=== PATIENT | female | born 1960 | race Caucasian/White ===

== ENCOUNTER → 2017-02-04 | Outpatient (CLI) | payer OTHER | LOC: FIMAGING 10:16 | PROVIDERS: ATTEND Internal Medicine Hematology & Oncology | DX: Z12.31 Encounter for screening mammogram for malignant neoplasm of breast (principal) | CPT/HCPCS: G0202 ==

== ENCOUNTER → 2017-10-16 | Outpatient (CLI) | payer OTHER | LOC: FIMAGING 18:45 | PROVIDERS: ATTEND Internal Medicine | DX: M50.30 Other cervical disc degeneration, unspecified cervical region (principal); M89.38 Hypertrophy of bone, other site ==

== ENCOUNTER → 2018-02-06 | Outpatient (CLI) | payer OTHER | LOC: FIMAGING 08:38 | PROVIDERS: ATTEND Surgery | DX: Z12.31 Encounter for screening mammogram for malignant neoplasm of breast (principal); Z86.000 Personal history of in-situ neoplasm of breast ==

== ENCOUNTER 2018-04-29 17:37 | Observation (INO) | payer OTHER ==
[2018-04-29] MEDS ORDERED: NITROGLYCERIN 0.4 MG BTL SL PRN (18:02)
[2018-04-29] MEDS ORDERED: NS 1,000 ML IV ONE (18:02)
[2018-04-29] MEDS ORDERED: ASPIRIN 81 MG CHEWABLE TAB PO ONE (18:02)
--- NOTE | 2018-04-29 18:04 | EDPHY ---
H & P Stated Complaint: CP SINCE SATURDAY POST TAKING HER MIGRAINE MEDS Time Seen by Provider: 04/29/18 18:02 HPI/ROS: HPI CHIEF COMPLAINT: Chest pain HISTORY OF PRESENT ILLNESS: Very pleasant 57-year-old female, history of breast cancer status post lumpectomy, edgardo dissection, no history of cardiovascular disease, presents emergency room with pressure in her chest. Describes it as substernal and left side of her chest. Has been rather constant today noticed it yesterday. Denies any significant shortness of breath or pleuritic pain. Denies hemoptysis. No history of cardiovascular or PE. Her does have extensive family history of cardiovascular disease. Currently in emergency room she still has substernal chest pressure something sitting on her chest. Past Medical History: Breast cancer Past Surgical History: Lumpectomy x2, edgardo dissection Social History: Denies drugs alcohol tobacco. Family History: Extensive family history of cardiovascular disease including coronary artery disease, atherosclerosis, aneurysmal disease ROS REVIEW OF SYSTEMS: 10 Systems were reviewed and negative with the exception of the elements mentioned in the history of present illness. Exam Constitutional triage nursing summary reviewed, vital signs reviewed, awake/ alert. Eyes normal conjunctivae and sclera, EOMI, PERRLA. HENT normal inspection, atraumatic, moist mucus membranes, no epistaxis, neck supple/ no meningismus, no raccoon eyes. Respiratory clear to auscultation bilaterally, normal breath sounds, no respiratory distress, no wheezing. Cardiovascular rate normal, regular rhythm, no murmur, no edema, distal pulses normal. Gastrointestinal soft, non-tender, no rebound, no guarding, normal bowel sounds, no distension, no pulsatile mass. Genitourinary no CVA tenderness. Musculoskeletal no midline vertebral tenderness, full range of motion, no calf swelling, no tenderness of extremities, no meningismus, good pulses, neurovascularly intact. Skin pink, warm, & dry, no rash, skin atraumatic. Neurologic awake, alert and oriented x 3, AAOx3, moves all 4 extremities equally, motor intact, sensory intact, CN II-XII intact, normal cerebellar, normal vision, normal speech. Psychiatric normal mood/affect. Heme/Lymph/Immune no lymphadenopathy. Differential diagnosis includes but is not limited to: ACS, atypical chest pain , pneumothorax, pneumonia, pulmonary embolism, aortic dissection, congestive heart failure, tumor, musculoskeletal pain, esophageal pain, GERD, peptic ulcer disease, pancreatitis Medical Decision Making: Plan for this patient IV establishment full laboratory monitor obtain EKG to rule out acute coronary syndrome, chest x-ray, full-dose aspirin, nitroglycerin, chest x-ray, D-dimer for PE. And re-evaluate. Re-evaluation: EKG interpretation by me on record in [id number] system. Impression time of EKG 1802, sinus rhythm rate of 57 no signs of acute ischemia no ST elevation no ST depression no significant T-wave abnormalities. No prolonged intervals. Unremarkable nonischemic EKG. Patient's point of care troponin 0.01. Patient has a negative D-dimer. The patient's EKG is unremarkable nonischemic. The patient's chest x-ray negative for acute cardiopulmonary disease. I had a long discussion with the patient about risk versus benefit of being admitted for chest pain. Given her typical substernal chest pressure, cardiovascular risk factors it is recommend she gets admitted for serial markers and rule out. HEART Score for Major Cardiac Events from [employer] on 04/30/2018 All calculations should be rechecked by clinician prior to use RESULT SUMMARY: 3 points Low Score (0-3 points) Risk of MACE of 0.9-1.7%. INPUTS: History > 1 = Moderately suspicious EKG > 0 = Normal Age > 1 = 45-64 Risk factors > 1 = 1-2 risk factors Initial troponin > 0 = normal limit However given Fam history. Recommed inpatient stress/serial enzymes. rule out. Source: Patient - Personal History Current Tetanus Diphtheria and Acellular Pertussis (TDAP): No - Medical/Surgical History Hx Asthma: No Hx Chronic Respiratory Disease: No Hx Diabetes: No Hx Cardiac Disease: No Hx Renal Disease: No Hx Cirrhosis: No Hx Alcoholism: No Hx HIV/AIDS: No Hx Splenectomy or Spleen Trauma: No Other PMH: MIGRAINES - Social History Smoking Status: Never smoked Constitutional: Initial Vital Signs Temperature (C) 36.4 C 04/29/18 17:45 Heart Rate 58 L 04/29/18 17:45 Respiratory Rate 18 04/29/18 17:45 Blood Pressure 130/68 H 04/29/18 17:45 O2 Sat (%) 97 04/29/18 17:45 O2 Delivery Mode Room Air Allergies/Adverse Reactions: fluconazole [From Diflucan] Allergy (Intermediate, Verified 04/29/18 17:43) morphine Allergy (Intermediate, Verified 04/29/18 17:43) Sulfa (Sulfonamide Antibiotics) Allergy (Intermediate, Verified 04/29/18 17:43) adhesive tape Allergy (Verified 04/30/18 00:16) Itching banana Allergy (Verified 04/29/18 17:43) Beans Allergy (Verified 04/29/18 17:43) Beef Containing Products [beef] Allergy (Verified 04/29/18 17:43) egg Allergy (Verified 04/29/18 17:43) green pepper Allergy (Verified 04/29/18 17:43) hydrocodone [Hydrocodone] Allergy (Verified 04/29/18 17:43) depression iodine [Iodine] Allergy (Verified 04/29/18 17:43) lower body numbness Milk Containing Products [dairy] Allergy (Verified 04/29/18 17:43) mushroom Allergy (Verified 04/29/18 17:43) Home Medications: Medication Instructions Recorded Acetaminophen [Tylenol ES 500 mg 1,000 mg PO Q8 PRN 04/29/18 (*)] Naratriptan HCl [Amerge] 2.5 mg PO PRN PRN 04/29/18 Medical Decision Making - Data Points Laboratory Results: Laboratory Results 04/29/18 18:17 04/29/18 18:17 Medications Given: Discontinued Medications Al Hydroxide/Mg Hydroxide (Maalox Susp) 30 ml PO ONCE ONE Stop: 04/29/18 21:08 Last Admin: 04/29/18 21:44 Dose: 30 ml Aspirin (Aspirin) 324 mg PO EDNOW ONE Stop: 04/29/18 18:03 Last Admin: 04/29/18 18:31 Dose: 324 mg Hyoscyamine Sulfate (Levsin, Hyomax-Sl) 0.25 mg PO ONCE ONE Stop: 04/29/18 21:08 Last Admin: 04/29/18 21:44 Dose: 0.25 mg Sodium Chloride (Ns) 1,000 mls @ 0 mls/hr IV EDNOW ONE; Wide Open PRN Reason: Protocol Stop: 04/29/18 18:03 Last Admin: 04/29/18 18:32 Dose: 1,000 mls Lidocaine (Lidocaine 2% Viscous) 15 ml PO ONCE ONE Stop: 04/29/18 21:08 Last Admin: 04/29/18 21:44 Dose: 15 ml Point of Care Test Results: Chemistry 04/29/18 19:08 POC Troponin I 0.01 ng/mL ng/mL (0.00-0.08) Departure - Departure Disposition: [facility] Inpatient Acute Clinical Impression: Chest pain Qualifiers: Chest pain type: unspecified Qualified Code(s): R07.9 - Chest pain, unspecified Condition: Fair
[2018-04-29 18:47] LABS: PLATELET COUNT 222 10^3/uL (150-400)
[2018-04-29 18:51] LABS: INR 1.08 (0.83-1.16); PROTIME(PATIENT) 14.2 SEC (12.0-15.0)
[2018-04-29 18:59] LABS: CREATINE KINASE 81 IU/L (0-156)
[2018-04-29] MEDS ORDERED: ACETAMINOPHEN 325 MG TAB PO PRN (20:52)
[2018-04-29] MEDS ORDERED: ONDANSETRON 4 MG/2 ML VIAL IVP PRN (20:52)
[2018-04-29] MEDS ORDERED: ONDANSETRON DISINTEGRATING 4 MG TAB PO PRN (20:52)
--- NOTE | 2018-04-29 21:06 | PDGENHP ---
History and Physical - Chief Complaint chest pain - History of Present Illness 57 yo female with h/o migraine presents to ED with chest pain. She was in [place] with her family this weekend and developed chest pain, which she describes as an uncomfortable pressure. The onset was not with exertion. She thought it was indigestion. The pain came and went. She developed a migraine on Saturday and took her triptan. Last night, the pain recurred, again at rest. No radiation. No nausea, SOB or diaphoresis. She notes a family h/o CAD in her father. Her sister also has CAD, onset in her 50's. She has no h/o tobacco , hypertension, hyperlipidemia, or diabetes. In the ED, she received aspirin. Her initial troponin is negative and her EKG is non-ischemic. She is admitted to the hospital for further evaluation. History Information - Allergies/Home Medication List Allergies/Adverse Reactions: fluconazole [From Diflucan] Allergy (Intermediate, Verified 04/29/18 17:43) morphine Allergy (Intermediate, Verified 04/29/18 17:43) Sulfa (Sulfonamide Antibiotics) Allergy (Intermediate, Verified 04/29/18 17:43) banana Allergy (Verified 04/29/18 17:43) Beans Allergy (Verified 04/29/18 17:43) Beef Containing Products [beef] Allergy (Verified 04/29/18 17:43) egg Allergy (Verified 04/29/18 17:43) green pepper Allergy (Verified 04/29/18 17:43) hydrocodone [Hydrocodone] Allergy (Verified 04/29/18 17:43) depression iodine [Iodine] Allergy (Verified 04/29/18 17:43) lower body numbness Milk Containing Products [dairy] Allergy (Verified 04/29/18 17:43) mushroom Allergy (Verified 04/29/18 17:43) Home Medications: Acetaminophen [Tylenol ES 500 mg (*)] 1,000 mg PO Q8 PRN 04/29/18 [Last Taken ] Naratriptan HCl [Amerge] 2.5 mg PO PRN PRN 04/29/18 [Last Taken 04/27/18] I have personally reviewed and updated: family history, medical history, social history, surgical history - Past Medical History Additional medical history: migraine headache - Surgical History Reports: no pertinent surgical hx - Family History Positive for: CAD - Social History Smoking Status: Never smoked Alcohol Use: None Drug Use: None Additional social history: , lives independently. at bedside. Review of Systems Review of Systems: ROS: 10pt was reviewed & negative except for what was stated in HPI & below Physical Exam Physical Exam: Temp Pulse Resp BP Pulse Ox 36.4 C 76 16 139/92 H 96 04/29/18 17:45 04/29/18 19:47 04/29/18 19:47 04/29/18 19:47 04/29/18 19:47 Constitutional: no apparent distress Eyes: PERRL Ears, Nose, Mouth, Throat: moist mucous membranes Cardiovascular: regular rate and rhythym Respiratory: no respiratory distress, clear to auscultation Gastrointestinal: normoactive bowel sounds, soft, non-tender abdomen Skin: warm Musculoskeletal: full muscle strength Neurologic: AAOx3 Psychiatric: interacting appropriately Lab Data & Imaging Review 04/29/18 18:17 04/29/18 18:17 WBC 4.65 10^3/uL (3.80-9.50) 04/29/18 18:17 RBC 4.45 10^6/uL (4.18-5.33) 04/29/18 18:17 Hgb 14.2 g/dL (12.6-16.3) 04/29/18 18:17 Hct 43.0 % (38.0-47.0) 04/29/18 18:17 MCV 96.6 fL (81.5-99.8) 04/29/18 18:17 MCH 31.9 pg (27.9-34.1) 04/29/18 18:17 MCHC 33.0 g/dL (32.4-36.7) 04/29/18 18:17 RDW 12.3 % (11.5-15.2) 04/29/18 18:17 Plt Count 222 10^3/uL (150-400) 04/29/18 18:17 MPV 11.0 fL (8.7-11.7) 04/29/18 18:17 Neut % (Auto) 62.9 % (39.3-74.2) 04/29/18 18:17 Lymph % (Auto) 28.8 % (15.0-45.0) 04/29/18 18:17 Piute % (Auto) 6.0 % (4.5-13.0) 04/29/18 18:17 Eos % (Auto) 1.7 % (0.6-7.6) 04/29/18 18:17 Baso % (Auto) 0.4 % (0.3-1.7) 04/29/18 18:17 Nucleat RBC Rel Count 0.0 % (0.0-0.2) 04/29/18 18:17 Absolute Neuts (auto) 2.92 10^3/uL (1.70-6.50) 04/29/18 18:17 Absolute Lymphs (auto) 1.34 10^3/uL (1.00-3.00) 04/29/18 18:17 Absolute Monos (auto) 0.28 10^3/uL (0.30-0.80) L 04/29/18 18:17 Absolute Eos (auto) 0.08 10^3/uL (0.03-0.40) 04/29/18 18:17 Absolute Basos (auto) 0.02 10^3/uL (0.02-0.10) 04/29/18 18:17 Absolute Nucleated RBC 0.00 10^3/uL (0-0.01) 04/29/18 18:17 Immature Gran % 0.2 % (0.0-1.1) 04/29/18 18:17 Immature Gran # 0.01 10^3/uL (0.00-0.10) 04/29/18 18:17 PT 14.2 SEC (12.0-15.0) 04/29/18 18:17 INR 1.08 (0.83-1.16) 04/29/18 18:17 APTT 27.1 SEC (23.0-38.0) 04/29/18 18:17 D-Dimer < 0.27 ug/mLFEU (0.00-0.50) 04/29/18 18:17 Sodium 138 mEq/L (135-145) 04/29/18 18:17 Potassium 3.8 mEq/L (3.3-5.0) 04/29/18 18:17 Chloride 102 mEq/L (97-110) 04/29/18 18:17 Carbon Dioxide 27 mEq/l (22-31) 04/29/18 18:17 Anion Gap 9 mEq/L (8-16) 04/29/18 18:17 BUN 17 mg/dL (7-23) 04/29/18 18:17 Creatinine 0.6 mg/dL (0.6-1.0) 04/29/18 18:17 Estimated GFR > 60 04/29/18 18:17 Glucose 87 mg/dL (70-100) 04/29/18 18:17 Calcium 9.5 mg/dL (8.5-10.4) 04/29/18 18:17 Magnesium 2.2 mg/dL (1.6-2.3) 04/29/18 18:17 Total Bilirubin 0.7 mg/dL (0.1-1.4) 04/29/18 18:17 Conjugated Bilirubin 0.1 mg/dL (0.0-0.5) 04/29/18 18:17 Unconjugated Bilirubin 0.6 mg/dL (0.0-1.1) 04/29/18 18:17 AST 23 IU/L (14-46) 04/29/18 18:17 ALT 28 IU/L (9-52) 04/29/18 18:17 Alkaline Phosphatase 67 IU/L (38-126) 04/29/18 18:17 Creatine Kinase 81 IU/L (0-156) 04/29/18 18:17 CK-MB (CK-2) Fraction 1.48 ng/mL (0.00-4.55) 04/29/18 18:17 POC Troponin I 0.01 ng/mL (0.00-0.08) 04/29/18 19:08 NT-Pro-B Natriuret Pep 58 pg/mL (0-125) 04/29/18 18:17 Total Protein 6.9 g/dL (6.3-8.2) 04/29/18 18:17 Albumin 4.1 g/dL (3.5-5.0) 04/29/18 18:17 Lipase 146 IU/L (23-300) 04/29/18 18:17 Visualized and Interpreted Chest x-ray results: Yes Chest X-Ray results: no infiltrate Visualized and Interpreted EKG results: Yes EKG Interpretation: Positive for: normal sinsus rhythm Assessment & Plan Assessment: Chest pain (Acute) - HEART score 3. Initial troponin neg. EKG non-ischemic. CP persists at 4/10. She refuses nitro or morphine. Agrees to GI cocktail. -trend trop -repeat EKG now to assess for evolutionary changes -trial GI cocktail, suspect this may be GI in origin -exercise treadmill stress test in am if trops remains neg and no EKG changes Migraine headache - defer triptan for now during cardiac workup Full code Dispo - obs
[2018-04-29] MEDS ORDERED: MAG HYDROX/AL HYDROX/SIMETH 30 ML UDCUP PO ONE (21:07)
[2018-04-29] MEDS ORDERED: LIDOCAINE 2% VISCOUS 15 ML UDCUP PO ONE (21:07)
[2018-04-29] MEDS ORDERED: HYOSCYAMINE SULFATE 0.125 MG TAB PO ONE (21:07)
--- NOTE | 2018-04-29 22:02 | CPEKG ---
Test Reason : OPEN Blood Pressure : / mmHG Vent. Rate : 057 BPM Atrial Rate : 056 BPM P-R Int : 180 ms QRS Dur : 096 ms QT Int : 444 ms P-R-T Axes : 057 065 012 degrees QTc Int : 433 ms Sinus rhythm Confirmed by Deisy Yuan ([id number]) on 04/29/2018 10:01:59 PM Referred By: Confirmed By:Deisy Yuan
[2018-04-30 08:07] VITALS: BP 120/71
--- NOTE | 2018-04-30 11:49 | PDDCSUM ---
Discharge Summary Discharge Summary: Date of Admission: 04/29/2018 Date of Discharge: 04/30/2018 Consults: Cardiology Procedures: Treadmill Stress Test Hospital Course Problem List: Chest pain (Acute) - HEART score 3. Initial troponin neg. EKG non-ischemic. CP persists at 4/10. She refuses nitro or morphine. -Troponins negative overnight x3 -trial GI cocktail, suspect this may be GI in origin -exercise treadmill stress test this AM was abnormal per cardiology, they recommend nuclear stress test which patient would like to be done as outpatient , cardiology will set this up Migraine: Was holding Triptans for stress test, resume as outpatient Time spent on discharge was >35 minutes with >50% of time spent on patient education and counseling.
--- NOTE | 2018-04-30 14:25 | PDCARST ---
CAR Stress Test Results Type of Stress Test: TM stress test Indication: cp Description of Procedure: After informed consent was obtained, pt was exercised according to [place] Protocol. Monitoring was performed with standard stress electric motor tester assembler electrode placement. Vital signs were monitored according to protocol throughout the procedure. STRESS EKG AND HEMODYNAMIC DATA. Exercise time: 6: 35 min. This is equivalent to: 7.6 METS. Resting heart rate: 91 bpm. Resting blood pressure: 110/70 mmHg. Resting O2 saturation: 94 %. Peak heart rate: 152 bpm. This is 93 % of age predicted maximum heart rate response. Peak blood pressure: 140/76 mmHg. Exercise O2: 94 %. Arrhythmias : none. Reason for termination: The test was stopped due to maximal effort. Symptoms: The patient experienced mild chest pressure before exercise that waxed and waned out of her awareness. When asked on TM if she is experiencing any discomfort, she described 2/10 pressure. This quickly resolved in recovery. STRESS TEST ANALYSIS. Baseline ECG: SR with diffuse ST-T w abn. Stress ECG: sinus tach. No exercise induced ischemic ECG changes. Baseline ECG abnormalities improved with exertion. Rhythm: No arrhythmias noted during exercise and recovery. Blood pressure: normal blood pressure response to exercise. Exercise tolerance: The patient has average exercise tolerance adjusted for age and gender. Symptoms: No exercise induced symptoms. Impression: IMPRESSIONS: Stress ECG negative for ischemia. The Hunt Treadmill Score is +2 consistent with intermediate cardiovascular risk. This is an equivocal study due to non-diagnostic ECG at rest and chest pressure at rest that waxed and waned out of her awareness and also again noted on exertion. Conclusion: Outpatient nuclear stress testing recommended.
--- NOTE | 2018-04-30 14:41 | ASDISCHSUM ---
Discharge Information Plan Status:Home with No Needs Medically Cleared to Leave:04/30/2018 Discharge Date:04/30/2018 01:25 PM CM D/C Disposition:Home, Routine, Self-Care ADT D/C Disposition:Home, Routine, Self-Care Projected Discharge Date:04/30/2018 01:25 PM Transportation at D/C: Discharge Delay Reason: Follow-Up Date:04/30/2018 01:25 PM Discharge Slot: Final Diagnosis: Placement Information Patient Contact Information Contact Name:RACQUEL Relationship: Address:[facility] [place] Work Phone: City:[place] Alternate Phone: State/Zip Code:[place] [address] Email: Financial Information Financial Class:[facility] Primary Plan Desc:RICK [facility]NA [facility] Primary Plan Number:[id number] Secondary Plan Desc: Secondary Plan Number: Assessment Information LACE LACE Length of stay for Answers: Less than 1 day current admission Acuity / Level of Answers: No Care: Did the patient have an inpatient admission? Comorbidities - select Answers: Opioid dependence all that apply / Chronic pain # of Emergency department Answers: 1-2 visits in the last 6 months Score: 5 Date Signed: 04/30/2018 02:40 PM Electronically Signed By:Galina Catalan RN Intervention Information
--- NOTE | 2018-05-01 06:11 | CPEKG ---
Test Reason : OPEN Blood Pressure : / mmHG Vent. Rate : 067 BPM Atrial Rate : 065 BPM P-R Int : 180 ms QRS Dur : 097 ms QT Int : 434 ms P-R-T Axes : 072 075 001 degrees QTc Int : 458 ms Sinus rhythm Confirmed by Tank Boland ([id number]) on 05/01/2018 6:11:03 AM Referred By: Confirmed By:Tank Boland
== END 2018-04-30 13:25 | disposition home or self-care (01) ==
LOC: F2W 20:13
PROVIDERS: ADMIT Hospitalist; ATTEND Hospitalist
DX: R07.9 Chest pain, unspecified (principal); Z85.3 Personal history of malignant neoplasm of breast; Z82.49 Family history of ischemic heart disease and other diseases of the circulatory system
CPT/HCPCS: 84484-PO; G0378